=== PATIENT | male | born 1995 | race Hispanic/Latino ===

== ENCOUNTER 2023-08-22 03:22 | Emergency (ER) | payer OTHER ==
[~2023-08-22] VITALS: Ht 170.2 cm; Wt 84.7 kg
[2023-08-22 07:11] VITALS: BP 134/79; TEMP 97.5; O2SAT 99
== END 2023-08-22 07:10 | disposition home or self-care (01) ==
LOC: M ED 03:22
DX: T16.2XXA Foreign body in left ear, initial encounter (principal)

== ENCOUNTER 2023-11-17 20:38 | Emergency (ER) | payer OTHER ==
[~2023-11-17] VITALS: Ht 167.6 cm; Wt 85.4 kg
[2023-11-17] MEDS: GASTROGRAFIN SOLUTION 30ML PO SCH (21:16)
[2023-11-17 21:27] LABS: BASO # 0.1 10^3/uL (0.0-0.2); BASO % 0.4 % (0.0-1.0); EOS % 0.1 % (0.0-3.0); HEMATOCRIT 44.3 % (42.0-52.0); HEMOGLOBIN 15.3 g/dl (13.5-17.5); LYMPH # 1.4 10^3/uL (1.5-5.0); LYMPH % 10.7 % (24.0-44.0); MEAN CORPUSCULAR HEMOGLOBIN 30.9 pg (27.0-33.0); MEAN CORPUSCULAR HGB CONC 34.5 g/dl (32.0-36.5); MEAN CORPUSCULAR VOLUME 89.5 fl (80.0-96.0); MONO # 0.8 10^3/uL (0.0-0.8); MONO % 6.1 % (2.0-8.0); NEUTROPHILS # 10.9 10^3/uL (1.5-8.5); NEUTROPHILS % 82.2 % (36.0-66.0); PLATELET COUNT, AUTOMATED 228 10^3/uL (150-450); RED BLOOD COUNT 4.95 10^6/uL (4.30-6.10); WHITE BLOOD COUNT 13.3 10^3/uL (4.0-10.0)
[2023-11-17] MEDS: MAALOX 30 ML SUSP *UDC PO ONE (21:46)
[2023-11-17 21:48] LABS: CK-MB VALUE MASS < 1.0 NG/ML (<3.6)
[2023-11-17 21:49] LABS: LIPASE 147 U/L (12-53)
[2023-11-17 21:51] LABS: ALBUMIN 3.7 G/DL (3.2-5.2); ALKALINE PHOSPHATASE 137 U/L (46-116); ALT/SGPT 147 U/L (7.0-40); AST/SGOT 182 U/L (<34); BILIRUBIN,DIRECT 0.8 MG/DL (<0.4); BILIRUBIN,TOTAL 1.4 MG/DL (0.3-1.2); CPK CREATINE PHOSPHOKINASE 100 U/L (46-171); TOTAL PROTEIN 6.9 G/DL (5.7-8.2)
[2023-11-17] MEDS ORDERED: ISOVUE-370 76% 100ML VIAL As Ordered ONE (22:46)
[2023-11-18 02:13] LABS: ALBUMIN 3.9 G/DL (3.2-5.2); BILIRUBIN,TOTAL 1.7 MG/DL (0.3-1.2); TOTAL PROTEIN 7.2 G/DL (5.7-8.2)
[2023-11-18 07:21] LABS: ALBUMIN 3.4 G/DL (3.2-5.2); BILIRUBIN,DIRECT 0.3 MG/DL (<0.4); BILIRUBIN,TOTAL 0.7 MG/DL (0.3-1.2); TOTAL PROTEIN 6.6 G/DL (5.7-8.2)
[2023-11-18 11:30] VITALS: TEMP 98.2
[2023-11-18 13:16] VITALS: BP 121/78; O2SAT 98
== END 2023-11-18 13:18 | disposition home or self-care (01) ==
LOC: M ED 20:38
DX: K80.50 Calculus of bile duct without cholangitis or cholecystitis without obstruction (principal); R00.1 Bradycardia, unspecified; I45.10 Unspecified right bundle-branch block
CPT/HCPCS: 36415; 74177; 74181; 76705; 80047; 80076; 82550; 82553; 83605; 83690; 84484; 85025; 87040; 93005; 93041; 99285; Q9963; Q9967